=== PATIENT | male | born 1975 | race Caucasian/White ===

== ENCOUNTER 2019-03-26 09:54 | Emergency (ER) | payer OTHER ==
[2019-03-26 10:00] VITALS: TEMP 97.6
[2019-03-26] MEDS ORDERED: ONDANSETRON 4 MG/2 ML VIAL IVP STA (10:45)
[2019-03-26] MEDS ORDERED: KETOROLAC 30 MG/ML 1 ML VIAL IVP STA (10:45)
[2019-03-26] MEDS ORDERED: SODIUM CHLORIDE 0.9% 1,000 ML IV STA (10:45)
--- NOTE | 2019-03-26 11:13 | ED ---
Abdominal Pain HPI - General Chief Complaint: Abdominal Pain Stated Complaint: abd pain Time Seen by Provider: 03/26/19 10:21 Source: patient Mode of arrival: ambulatory Limitations: no limitations - History of Present Illness Initial Comments: Patient is a 43-year-old male presenting to emergency Department with complaints of left lower quadrant pain that started suddenly last night. Patient states he's never had this type of pain before. Denies history of abdominal surgeries. Denies history of kidney stones. Patient had regular bowel movement last night. Patient has had a colonoscopy that showed a few polyps but no other findings. Denies fever, chills, vomiting, diarrhea, burning with urination, hematuria. Patient does admit to nausea with this pain but no vomiting. Patient did take Tylenol without relief of symptoms. Patient has no other complaints at this time. Patient denies any other pertinent past medical history and takes no medications. Patient does admit to being every day smoker, occasional drinker. Upon arrival to ER, vital signs are stable. - Related Data Allergies Allergy/AdvReac Type Severity Reaction Status Date / Time No Known Allergies Allergy Verified 03/26/19 09:58 Review of Systems ROS Statement: Those systems with pertinent positive or pertinent negative responses have been documented in the HPI. ROS Other: All systems not noted in ROS Statement are negative. Past Medical History Past Medical History: No Reported History History of Any Multi-Drug Resistant Organisms: None Reported Past Surgical History: No Surgical Hx Reported Past Psychological History: No Psychological Hx Reported Smoking Status: Current every day smoker Past Alcohol Use History: None Reported Past Drug Use History: None Reported General Exam - General Exam Comments Initial Comments: GENERAL: Well-appearing, well-nourished and in no acute distress, but appears uncomfortable. HEAD: Atraumatic, normocephalic. EYES: Pupils equal round and reactive to light, extraocular movements intact, sclera anicteric, conjunctiva are normal. ENT: Nares patent, oropharynx clear without exudates. Moist mucous membranes. NECK: Normal range of motion, supple without lymphadenopathy or JVD. LUNGS: Breath sounds clear to auscultation bilaterally and equal. No wheezes rales or rhonchi. HEART: Regular rate and rhythm without murmurs, rubs or gallops. ABDOMEN: Tender to palpation in the left lower quadrant. Soft, normoactive bowel sounds. No guarding, no rebound. No masses appreciated. No inguinal hernia as present. EXTREMITIES: Normal range of motion, no pitting or edema. No clubbing or cyanosis. NEUROLOGICAL: Normal speech, normal gait. PSYCH: Normal mood, normal affect. SKIN: Warm, Dry, normal turgor, no rashes or lesions noted. Limitations: no limitations Course Vital Signs 03/26/19 03/26/19 09:58 13:42 Temperature 97.6 F Pulse Rate 97 70 Respiratory 18 16 Rate Blood Pressure 156/82 128/61 O2 Sat by Pulse 99 Oximetry Medical Decision Making - Medical Decision Making Patient is a 43-year-old male presenting with left lower quadrant pain started suddenly last night. Patient has no prior history of abdominal surgeries. Vital signs are stable. On exam patient only has tenderness left lower quadrant. Patient's lab work is unremarkable today including UA. CT the abdomen shows a 3 mm stone in appendix however there is no evidence for acute appendicitis at this time. There is also bilateral fat-containing inguinal hernias. No other acute findings. Patient was given fluids, Zofran, Toradol for symptom control. Patient is resting comfortably upon recheck. Patient has no right lower quadrant pain and diagnosis of appendicitis seems low at this point. Was discussed with patient and his pain is most likely related to his inguinal hernia. There is no hernias felt on exam today. Patient is able for discharge at this time and he is in agreement with this plan of care. Patient will follow up with his PCP if symptoms persist. Return parameters were discussed with the patient and he verbalized understanding. Case discussed with Dr. Okeefe. - Lab Data Result diagrams: 03/26/19 11:48 03/26/19 11:48 Lab Results 03/26/19 03/26/19 03/26/19 Range/Units 11:25 11:48 11:48 WBC 10.3 (3.8-10.6) k/uL RBC 4.82 (4.30-5.90) m/uL Hgb 14.9 (13.0-17.5) gm/dL Hct 44.4 (39.0-53.0) % MCV 92.3 (80.0-100.0) fL MCH 31.0 (25.0-35.0) pg MCHC 33.5 (31.0-37.0) g/dL RDW 12.6 (11.5-15.5) % Plt Count 158 (150-450) k/uL Neutrophils % 78 % Lymphocytes % 16 % Monocytes % 4 % Eosinophils % 1 % Basophils % 0 % Neutrophils # 8.1 H (1.3-7.7) k/uL Lymphocytes # 1.6 (1.0-4.8) k/uL Monocytes # 0.4 (0-1.0) k/uL Eosinophils # 0.1 (0-0.7) k/uL Basophils # 0.1 (0-0.2) k/uL Sodium 137 (137-145) mmol/L Potassium 4.5 (3.5-5.1) mmol/L Chloride 102 (98-107) mmol/L Carbon Dioxide 26 (22-30) mmol/L Anion Gap 9 mmol/L BUN 13 (9-20) mg/dL Creatinine 0.92 (0.66-1.25) mg/dL Est GFR (CKD-EPI)AfAm >90 (>60 ml/min/1.73 sqM) Est GFR (CKD-EPI)NonAf >90 (>60 ml/min/1.73 sqM) Glucose 101 H (74-99) mg/dL Calcium 9.5 (8.4-10.2) mg/dL Total Bilirubin 0.5 (0.2-1.3) mg/dL AST 24 (17-59) U/L ALT 47 (21-72) U/L Alkaline Phosphatase 82 (38-126) U/L Total Protein 7.8 (6.3-8.2) g/dL Albumin 4.6 (3.5-5.0) g/dL Amylase 44 (30-110) U/L Lipase 80 (23-300) U/L Urine Color Light Yellow Urine Appearance Clear (Clear) Urine pH 5.0 (5.0-8.0) Ur Specific [place] 1.006 (1.001-1.035) Urine Protein Negative (Negative) Urine Glucose (UA) Negative (Negative) Urine Ketones Negative (Negative) Urine Blood Trace H (Negative) Urine Nitrite Negative (Negative) Urine Bilirubin Negative (Negative) Urine Urobilinogen <2.0 (<2.0) mg/dL Ur Leukocyte Esterase Negative (Negative) Urine RBC <1 (0-5) /hpf Urine WBC 3 (0-5) /hpf Urine Mucus Rare H (None) /hpf Disposition Clinical Impression: Left lower quadrant abdominal pain, Nausea Disposition: HOME SELF-CARE Condition: Stable Instructions (If sedation given, give patient instructions): Abdominal Pain (ED) Additional Instructions: Please return to the Emergency Department if symptoms worsen or any other concerns. Take ibuprofen for pain relief. Follow-up with PCP as symptoms persist. Is patient prescribed a controlled substance at d/c from ED?: No Referrals: Malik Schultz MD [Primary Care Provider] - 1-2 days
[2019-03-26 11:54] LABS: Appearance,Urine Clear (Clear); Bilirubin,Urine Negative (Negative); Blood,Urine Trace (Negative); Color,Urine Light Yellow; Glucose,Urine (UA) Negative (Negative); Ketones,Urine Negative (Negative); Leukocyte Esterase,Urine Negative (Negative); Mucus,Urine Rare /hpf; Nitrite,Urine Negative (Negative); Protein,Urine Negative (Negative); RBC,Urine <1 /hpf (0-5); Specific Gravity,Urine 1.006 (1.001-1.035); Urobilinogen,Urine <2.0 mg/dL (<2.0); WBC,Urine 3 /hpf (0-5)
[2019-03-26 12:23] LABS: ALT 47 U/L (21-72); AST 24 U/L (17-59); African American GFR (CKD) >90 (>60 ml/min/1.73 sqM); Albumin 4.6 g/dL (3.5-5.0); Alkaline Phosphatase 82 U/L (38-126); Amylase 44 U/L (30-110); Anion Gap 9 mmol/L; Blood Urea Nitrogen 13 mg/dL (9-20); Calcium 9.5 mg/dL (8.4-10.2); Carbon Dioxide 26 mmol/L (22-30); Chloride 102 mmol/L (98-107); Glucose 101 mg/dL (74-99); Potassium 4.5 mmol/L (3.5-5.1); Sodium 137 mmol/L (137-145); Total Bilirubin 0.5 mg/dL (0.2-1.3); Total Protein 7.8 g/dL (6.3-8.2)
[2019-03-26 12:32] LABS: Basophils # (A) 0.1 k/uL (0-0.2); Basophils % (A) 0 %; Eosinophils # (A) 0.1 k/uL (0-0.7); Eosinophils % (A) 1 %; HCT 44.4 % (39.0-53.0); HGB 14.9 gm/dL (13.0-17.5); Lymphocytes # (A) 1.6 k/uL (1.0-4.8); Lymphocytes % (A) 16 %; MCHC 33.5 g/dL (31.0-37.0); MCV 92.3 fL (80.0-100.0); Mean Platelet Volume 9.5; Monocytes # (A) 0.4 k/uL (0-1.0); Monocytes % (A) 4 %; Neutrophils # (A) 8.1 k/uL (1.3-7.7); Neutrophils % (A) 78 %; Platelet Count 158 k/uL (150-450); RBC 4.82 m/uL (4.30-5.90); RDW 12.6 % (11.5-15.5); WBC 10.3 k/uL (3.8-10.6)
--- NOTE | 2019-03-26 12:52 | CT ---
EXAMINATION TYPE: CT abdomen pelvis w con DATE OF EXAM: 03/26/2019 COMPARISON: None HISTORY: Left lower quadrant pain CT DLP: 1725 mGycm CONTRAST: CT scan of the abdomen and pelvis is performed without Oral Contrast and with IV Contrast, patient in jected with 100 mL of Isovue 300. FINDINGS: LUNG BASES-: No visible nodule. No infiltrate. LIVER/GB: No calcified gallstones. No space occupying hepatic lesion. Biliary tree is of normal ca liber. PANCREAS: No inflammation. No distinct mass. SPLEEN: No splenic enlargement. No lesion seen. ADRENALS: No nodule. No thickening. KIDNEYS/BLADDER: No hydronephrosis. No nephrolithiasis. No distinct renal mass. Urinary bladder g rossly unremarkable. BOWEL: 3 mm appendicolith however the appendix is not dilated or inflamed. Normal bowel caliber. No inflammation. GENITAL ORGANS: No gross abnormality. LYMPH NODES: No greater than 1cm abdominal or pelvic lymph nodes are appreciated. AORTA: No significant abnormality. OSSEOUS STRUCTURES: No significant abnormality is seen. OTHER: Fat-containing inguinal hernias noted. IMPRESSION: 1. Millimeter appendicolith however there is no evidence for acute appendicitis at this time. 2. Bilateral fat-containing inguinal hernias.
[2019-03-26 13:43] VITALS: BP 128/61; PULSE 70; RESP 16
== END 2019-03-26 13:45 | disposition home or self-care (01) ==
LOC: EC 09:54
DX: R10.32 Left lower quadrant pain (principal); R11.0 Nausea; K38.1 Appendicular concretions; K40.20 Bilateral inguinal hernia, without obstruction or gangrene, not specified as recurrent; F17.200 Nicotine dependence, unspecified, uncomplicated; Z86.010 Personal history of colon polyps
CPT/HCPCS: 36415; 80053; 82150; 83690; 85025; 81001; 74177; 99284; 96374; 96375; 96361 ×2; J2405; J1885; Q9967

== ENCOUNTER 2019-11-23 00:34 | Emergency (ER) | payer OTHER ==
[2019-11-23 01:13] LABS: Basophils # (A) 0.1 k/uL (0-0.2); Basophils % (A) 0 %; Eosinophils # (A) 0.1 k/uL (0-0.7); Eosinophils % (A) 0 %; HCT 45.3 % (39.0-53.0); HGB 15.4 gm/dL (13.0-17.5); Lymphocytes # (A) 1.8 k/uL (1.0-4.8); Lymphocytes % (A) 9 %; MCH 32.5 pg (25.0-35.0); MCHC 34.1 g/dL (31.0-37.0); MCV 95.5 fL (80.0-100.0); Mean Platelet Volume 9.3; Monocytes # (A) 0.9 k/uL (0-1.0); Monocytes % (A) 5 %; Neutrophils % (A) 84 %; Platelet Count 193 k/uL (150-450); RBC 4.75 m/uL (4.30-5.90); RDW 13.1 % (11.5-15.5); WBC 20.1 k/uL (3.8-10.6)
[2019-11-23 01:18] LABS: Albumin 4.6 g/dL (3.5-5.0); Calcium 9.6 mg/dL (8.4-10.2); Potassium 4.1 mmol/L (3.5-5.1); Total Bilirubin 0.3 mg/dL (0.2-1.3); Total Protein 7.8 g/dL (6.3-8.2)
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
[2019-11-23 01:26] LABS: Creatine Kinase 483 U/L (55-170)
[2019-11-23 01:28] LABS: INR 0.9 (<1.2); Partial Thromboplastin Time 22.4 sec (22.0-30.0); Prothrombin Time 9.6 sec (9.0-12.0)
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
[2019-11-23 01:39] LABS: Creatine Kinase MB 3.5 ng/mL (0.0-2.4); Troponin I <0.012 ng/mL (0.000-0.034)
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
--- NOTE | 2019-11-23 02:40 | XR ---
EXAMINATION TYPE: XR knee complete RT DATE OF EXAM: 11/23/2019 COMPARISON: NONE HISTORY: Knee pain TECHNIQUE: 3 views FINDINGS: I see no fracture nor dislocation. Joint spaces are normal. There is no sign of knee joint effusion. IMPRESSION: Negative right knee exam. No fracture.
--- NOTE | 2019-11-23 02:43 | XR ---
EXAMINATION TYPE: XR elbow complete RT DATE OF EXAM: 11/23/2019 COMPARISON: NONE HISTORY: Elbow pain TECHNIQUE: 3 views FINDINGS: There is a 10 mm nondisplaced intra-articular chip fracture of the lateral aspect of the ra dial head. There is no dislocation. There is an additional 7 mm bony density at the lateral aspect of the elbow joint of uncertain origin. There is no dislocation. IMPRESSION: Intra-articular radial head large chip fracture. Additional fracture fragment lateral to the radiohumeral joint. It is not clear the origin of this bony density.
[2019-11-23 04:21] VITALS: BP 133/73; PULSE 99; RESP 16; TEMP 98.7
== END 2019-11-23 04:16 | disposition home or self-care (01) ==
LOC: EC 00:34
DX: S06.0X9A Concussion with loss of consciousness of unspecified duration, initial encounter (principal); S52.124A Nondisplaced fracture of head of right radius, initial encounter for closed fracture; S80.211A Abrasion, right knee, initial encounter; F17.200 Nicotine dependence, unspecified, uncomplicated; V86.05XA Driver of 3- or 4- wheeled all-terrain vehicle (ATV) injured in traffic accident, initial encounter; Y92.410 Unspecified street and highway as the place of occurrence of the external cause
CPT/HCPCS: 99284; 36415; 86900; 86901; 80053; 82150; 82550; 82553; 83605; 83690; 84484; 85025; 85610; 85730; 86850; 80320; 72170; 73080; 73562; 71045; 72128; 72125; 72131; 70450; 71260; 74177; Q9967

== ENCOUNTER 2021-09-01 14:04 | Emergency (ER) | payer BC, OTHER ==
[2021-09-01 14:08] VITALS: RESP 18; TEMP 99.7
[2021-09-01] MEDS ORDERED: ASPIRIN 81 MG PO STA (14:25)
--- NOTE | 2021-09-01 14:25 | ED ---
General Adult HPI - General Source: patient Mode of arrival: wheelchair Limitations: no limitations <Loc Poole - Last Filed: 09/01/21 14:51> <Hardy Recio - Last Filed: 09/01/21 16:49> - General Chief complaint: Chest Pain Stated complaint: chest pain Time Seen by Provider: 09/01/21 14:10 - History of Present Illness Initial comments: Dictation was produced using [employer] dictation software. please excuse any grammatical, word or spelling errors. Chief Complaint: Patient is a 45-year-old male past history of tobacco use presents to emergency Department for acute on chronic chest pain History of Present Illness: 45-year-old male he denies any medical history. He is regular tobacco user. States that over the past several months he's been having frequent chest pain. The last one to 2 days chest pain significantly worsened. States sometimes it radiates to his left upper extremity and up towards his left jaw. Feels like his arms get a little clammy whenever he gets the chest pain. Denies any associated nausea. Patient has been seen by his primary care doctor in the past for his chest pain. Since get an EKG and no blood work. Patient denies any strong family history of heart attacks or sudden before the age of 50. Patient states he has some mild chest pain currently. He describes the pain as pressure to his left anterior chest. EMS was called and evaluated the patient at home. They did perform an EKG. EMS told patient that his EKG was abnormal and that he should come to the emergency department right away. patient refused and came by private vehicle instead. The ROS documented in this emergency department record has been reviewed and confirmed by me. Those systems with pertinent positive or negative responses have been documented in the HPI. All other systems are other negative and/or noncontributory. PHYSICAL EXAM: General Impression: Alert and oriented x3, not in acute distress HEENT: Normocephalic atraumatic, extra-ocular movements intact, pupils equal and reactive to light bilaterally, mucous membranes moist. Cardiovascular: Heart regular rate and rhythm Chest: Able to complete full sentences, no retractions, no tachypnea Abdomen: abdomen soft, non-tender, non-distended, no organomegaly Musculoskeletal: Pulses present and equal in all extremities, no peripheral edema Motor: no focal deficits noted Neurological: CN II-XII grossly intact, no focal motor or sensory deficits noted Skin: Intact with no visualized rashes Psych: Normal affect and mood ED course: 45 yo male presents to emergency department for atypical chest pain typical features. Vital signs upon arrival shows findings within acceptable limits. Prehospital EKG was reviewed showing no signs of ischemia or infarction. Patient care signed out to Dr. Recio following pending labs and imaging. EKG interpretation: Ventricular rate 89, sinus rhythm,. Interval 182, care is 94, QTC 46. No OH prolongation, no QTC prolongation, no ST or T-wave changes noted. Overall, this EKG is unremarkable (Loc Poole) - Related Data Home Medications Medication Instructions Recorded Confirmed No Known Home Medications 09/01/21 09/01/21 Allergies Allergy/AdvReac Type Severity Reaction Status Date / Time No Known Allergies Allergy Verified 09/01/21 15:56 Review of Systems ROS Other: All systems not noted in ROS Statement are negative. <Lco Poole - Last Filed: 09/01/21 14:51> ROS Other: All systems not noted in ROS Statement are negative. <Hardy Recio - Last Filed: 09/01/21 16:49> ROS Statement: Those systems with pertinent positive or pertinent negative responses have been documented in the HPI. Past Medical History Past Medical History: No Reported History History of Any Multi-Drug Resistant Organisms: None Reported Past Surgical History: No Surgical Hx Reported Past Psychological History: No Psychological Hx Reported Smoking Status: Current every day smoker Past Alcohol Use History: None Reported Past Drug Use History: None Reported <Loc Poole - Last Filed: 09/01/21 14:51> General Exam Limitations: no limitations <Loc Poole - Last Filed: 09/01/21 14:51> Course Vital Signs 09/01/21 09/01/21 09/01/21 14:06 14:39 15:00 Temperature 99.7 F H Pulse Rate 92 102 H 103 H Respiratory 18 20 18 Rate Blood Pressure 151/94 138/91 O2 Sat by Pulse 97 98 Oximetry 09/01/21 15:30 Temperature Pulse Rate 98 Respiratory 18 Rate Blood Pressure 134/67 O2 Sat by Pulse 99 Oximetry Medical Decision Making - Lab Data Result diagrams: 09/01/21 14:34 09/01/21 14:34 <Hardy Recio - Last Filed: 09/01/21 16:49> - Medical Decision Making Patient was signed out to me pending reevaluation and laboratory studies. Presents originally for atypical chest pain which is been relatively chronic. States has been present for "years". States that earlier this morning and was somewhat worse, however there was over 3 hours ago. States it is left-sided and pressure sensation, and states it is identical to pain he has had in the past. States he wanted to come in today to get evaluated just in case because EMS recommended he come in. States is unchanged from prior episodes. When I evalua jacqui the patient, he states that the pain is resolved. He does was history of anxiety and I will provide him with a one-time dose of Ativan. Laboratory studies are unremarkable including a negative troponin. Patient is a very mild leukocytosis of 12 which is likely reactive. Chest x-ray reveals shadowing but otherwise no acute cardiopulmonary process. EKG was assessed by the prior physician, and revealed no signs of acute ischemia. I agree with this evaluation. Reevaluation from patient is asymptomatic at this time. Heart score is low at 2-3. I believe is safe for him to be discharged home and he was in agreement with this plan. I instructed the patient to follow up with their PCP in the next 3 days. I explained that the patient should return to the emergency department if they experience any worsening symptoms. Strict return precautions were discussed with the patient. The patient expressed understanding of these instructions. I answered all questions that the patient had. The patient was discharged home in good condition with their prescriptions and follow up information. (Hardy Recio) - Lab Data Lab Results 09/01/21 09/01/21 09/01/21 Range/Units 14:34 14:34 14:34 WBC 12.0 H (3.8-10.6) k/uL RBC 4.84 (4.30-5.90) m/uL Hgb 15.9 (13.0-17.5) gm/dL Hct 47.3 (39.0-53.0) % MCV 97.7 (80.0-100.0) fL MCH 32.8 (25.0-35.0) pg MCHC 33.5 (31.0-37.0) g/dL RDW 13.1 (11.5-15.5) % Plt Count 201 (150-450) k/uL MPV 9.0 Neutrophils % 84 % Lymphocytes % 11 % Monocytes % 3 % Eosinophils % 0 % Basophils % 0 % Neutrophils # 10.1 H (1.3-7.7) k/uL Lymphocytes # 1.3 (1.0-4.8) k/uL Monocytes # 0.4 (0-1.0) k/uL Eosinophils # 0.0 (0-0.7) k/uL Basophils # 0.1 (0-0.2) k/uL PT 10.1 (9.0-12.0) sec INR 0.9 (<1.2) APTT 23.1 (22.0-30.0) sec Sodium 138 (137-145) mmol/L Potassium 4.2 (3.5-5.1) mmol/L Chloride 101 (98-107) mmol/L Carbon Dioxide 26 (22-30) mmol/L Anion Gap 11 mmol/L BUN 16 (9-20) mg/dL Creatinine 1.05 (0.66-1.25) mg/dL Est GFR (CKD-EPI)AfAm >90 (>60 ml/min/1.73 sqM) Est GFR (CKD-EPI)NonAf 85 (>60 ml/min/1.73 sqM) Glucose 134 H (74-99) mg/dL Calcium 9.3 (8.4-10.2) mg/dL Troponin I (0.000-0.034) ng/mL 09/01/21 Range/Units 14:34 WBC (3.8-10.6) k/uL RBC (4.30-5.90) m/uL Hgb (13.0-17.5) gm/dL Hct (39.0-53.0) % MCV (80.0-100.0) fL MCH (25.0-35.0) pg MCHC (31.0-37.0) g/dL RDW (11.5-15.5) % Plt Count (150-450) k/uL MPV Neutrophils % % Lymphocytes % % Monocytes % % Eosinophils % % Basophils % % Neutrophils # (1.3-7.7) k/uL Lymphocytes # (1.0-4.8) k/uL Monocytes # (0-1.0) k/uL Eosinophils # (0-0.7) k/uL Basophils # (0-0.2) k/uL PT (9.0-12.0) sec INR (<1.2) APTT (22.0-30.0) sec Sodium (137-145) mmol/L Potassium (3.5-5.1) mmol/L Chloride (98-107) mmol/L Carbon Dioxide (22-30) mmol/L Anion Gap mmol/L BUN (9-20) mg/dL Creatinine (0.66-1.25) mg/dL Est GFR (CKD-EPI)AfAm (>60 ml/min/1.73 sqM) Est GFR (CKD-EPI)NonAf (>60 ml/min/1.73 sqM) Glucose (74-99) mg/dL Calcium (8.4-10.2) mg/dL Troponin I <0.012 (0.000-0.034) ng/mL Disposition <Loc Poole - Last Filed: 09/01/21 14:51> Is patient prescribed a controlled substance at d/c from ED?: No Time of Disposition: 16:40 <Hardy Recio - Last Filed: 09/01/21 16:49> Clinical Impression: Atypical chest pain, Anxiety Disposition: HOME SELF-CARE Condition: Good Instructions (If sedation given, give patient instructions): Chest Pain (ED) Referrals: Malik Schultz MD [Primary Care Provider] - 1-2 days
[2021-09-01 14:54] LABS: Basophils # (A) 0.1 k/uL (0-0.2); Basophils % (A) 0 %; Eosinophils % (A) 0 %; HCT 47.3 % (39.0-53.0); HGB 15.9 gm/dL (13.0-17.5); Lymphocytes # (A) 1.3 k/uL (1.0-4.8); Lymphocytes % (A) 11 %; MCH 32.8 pg (25.0-35.0); MCHC 33.5 g/dL (31.0-37.0); MCV 97.7 fL (80.0-100.0); Monocytes # (A) 0.4 k/uL (0-1.0); Monocytes % (A) 3 %; Neutrophils # (A) 10.1 k/uL (1.3-7.7); Neutrophils % (A) 84 %; Platelet Count 201 k/uL (150-450); RBC 4.84 m/uL (4.30-5.90); RDW 13.1 % (11.5-15.5)
--- NOTE | 2021-09-01 14:56 | XR ---
EXAMINATION TYPE: XR chest 1V portable DATE OF EXAM: 09/01/2021 COMPARISON: X-ray dated 11/23/2019 HISTORY: Chest pain TECHNIQUE: Single frontal view of the chest is obtained. FINDINGS: 7 mm nodular density superimposed on the medial aspect of the left midlung zone which could represent a summation of shadows however a lung nodule at that location can't be excluded. This was not well a ppreciated previously. Grossly unremarkable lungs otherwise. No sizable pleural effusion or definite pneumothorax. Slightly increased cardiac transverse diameter, possibly related to the portable position. No gross aggressive bone lesion. Questionable small sliding hiatal hernia. IMPRESSION: No definite acute pulmonary abnormality identified. Questionable left midlung zone nodule versus summ ation of shadows. This can be further assessed by 2 views of the chest versus elective CT scan.
[2021-09-01 15:01] LABS: INR 0.9 (<1.2); Partial Thromboplastin Time 23.1 sec (22.0-30.0); Prothrombin Time 10.1 sec (9.0-12.0)
[2021-09-01 15:05] LABS: African American GFR (CKD) >90 (>60 ml/min/1.73 sqM); Anion Gap 11 mmol/L; Blood Urea Nitrogen 16 mg/dL (9-20); Calcium 9.3 mg/dL (8.4-10.2); Carbon Dioxide 26 mmol/L (22-30); Chloride 101 mmol/L (98-107); Glucose 134 mg/dL (74-99); Non-African American GFR(CKD) 85 (>60 ml/min/1.73 sqM); Potassium 4.2 mmol/L (3.5-5.1); Sodium 138 mmol/L (137-145)
[2021-09-01] MEDS ORDERED: KETOROLAC 15 MG/ML 1 ML VIAL IVP STA (15:25)
[2021-09-01 16:01] VITALS: BP 134/67; PULSE 98
[2021-09-01] MEDS ORDERED: LORazepam 1 MG TAB PO STA (16:21)
== END 2021-09-01 17:31 | disposition home or self-care (01) ==
LOC: EC 14:04
DX: R07.89 Other chest pain (principal); F41.9 Anxiety disorder, unspecified; F17.200 Nicotine dependence, unspecified, uncomplicated
CPT/HCPCS: 36415; 71045; 80048; 84484; 85025; 85610; 85730; 93005; 99285